=== PATIENT | female | born 1960 | race Caucasian/White ===

== ENCOUNTER 2022-10-09 14:03 | Emergency (ER) | payer OTHER, SELFPAY ==
--- NOTE | ~2022-10-09 | XR_ITS ---
EXAMINATION: XR knee LT min 4V DATE: 10/09/2022 14:31 INDICATION: Twisting injury of the left knee TECHNIQUE: Anteroposterior, 2 oblique and crosstable lateral views of the left knee were obtained COMPARISON: None. FINDINGS: Alignment is normal. No fracture. Joint spaces appear normal on nonweightbearing imaging. Tiny varghese nal osteophyte at the cephalad aspect of the patella. Small to moderate-sized left knee joint effusio n without layering lipohemarthrosis. Soft tissues are unremarkable. IMPRESSION: 1. Small to moderate-sized left knee joint effusion. No acute onset multiple . Reviewed, dictated and finalized at location A. [facility] WE[facility]
[2022-10-09 14:15] VITALS: BP 145/78; PULSE 94; RESP 16; TEMP 36.9; O2SAT 99
--- NOTE | 2022-10-09 15:34 | ED.LOWEXIN ---
HPI - Extremity Injury (Lower) General Chief Complaint: Extremity Injury, Lower Stated Complaint: Pain in left knee traveling down leg after injury Time Seen by Provider: 10/09/22 15:34 Source: patient, RN notes reviewed and old records reviewed Mode of arrival: ambulatory Limitations: no limitations History of Present Illness HPI Narrative: 61 year old female who [facility] with complaints of twisting her left knee when walking on stairs outside 10 days ago. Patient reports that she continues to have discomfort in left knee with pain to lateral aspect of her knee which increases with weight bearing. Patient reports that she has been taking muscle relaxers and has been using ice to her knee at intervals.Patient is on daily meloxicam. MD complaint: knee injury (left) Onset (ago): day(s) (10) Type of Injury: other (twisting) Place: street/outdoors Severity scale (1-10): 10 Associated symptoms: able to partially bear weight Treatments prior to arrival: cold therapy and other (muscle relaxers) Related Data Home Medications Medication Instructions Recorded Confirmed amlodipine 10 mg tablet 10 mg PO DAILY 10/09/22 10/09/22 cyclobenzaprine 10 mg tablet 10 mg PO TID PRN Back Pain 10/09/22 10/09/22 hydrocodone 7.5 mg-acetaminophen 1 tablet PO Q6-8H 10/09/22 10/09/22 325 mg tablet meloxicam 15 mg tablet 15 mg PO DAILY 10/09/22 10/09/22 omeprazole 40 mg capsule,delayed 40 mg PO DAILY 10/09/22 10/09/22 release ropinirole 0.25 mg tablet 0.25 mg PO HS 10/09/22 10/09/22 rosuvastatin 40 mg tablet 40 mg PO DAILY 10/09/22 10/09/22 Allergies Allergy/AdvReac Type Severity Reaction Status Date / Time No Known Allergies Allergy Unknown Verified 12/01/06 16:18 Review of Systems Review of Systems: CONSTITUTIONAL: Denies fever, chills, or sweats. EYES: Denies visual changes, redness, or discharge. ENT: Denies rhinorrhea, congestion, sore throat, or otalgia. CARDIOVASCULAR: Denies chest pain, palpitations, or edema. RESPIRATORY: Denies cough or dyspnea. GASTROINTESTINAL: Denies abdominal pain, nausea, vomiting, or diarrhea. GENITOURINARY: Denies dysuria or hematuria. SKIN: Denies rash or itching. MUSCULOSKELETAL: Denies back pain,positive for pain to her left knee joint pain, or myalgia. NEUROLOGIC: Denies headache, numbness, or weakness. PSYCHIATRIC: Denies anxiety or depression. All systems reviewed & are unremarkable except as noted in HPI and below PMFSH Past Medical History Medical History (Updated 10/12/22 @ 11:41 by Jennifer Astudillo NP) Elevated cholesterol Fibula fracture ORIF left fibular fracture GERD (gastroesophageal reflux disease) Hypertension Restless leg syndrome Surgical History Surgical History (Updated 10/12/22 @ 11:36 by Jennifer Astudillo NP) H/O: hysterectomy History of History of cholecystectomy History of lumbar laminectomy Social History Social History (Updated 10/12/22 @ 11:44 by Jennifer Astudillo NP) Smoking status: Never smoker Alcohol intake: current Alcohol use details: social Substance use type: does not use Living arrangements: with family Gender identity (if verbalized by the patient): Female Comments At time of signature, agree with nursing past medical, surgical, social and family history. There is no relevant family history pertinent to the presenting complaint Exam Narrative: GENERAL: Well-appearing, well-nourished, and in no acute distress. HEAD: Normocephalic, atraumatic. EYES: PERRLA and EOMI. ENT: Nares clear, no rhinorrhea or epistaxis. Mucous membranes moist. NECK: Supple.no lymphadenopathy CHEST: Clear to auscultation. No respiratory distress. HEART: Regular rate and rhythm. No murmur heard. Normal peripheral pulses. ABDOMEN: Soft, nontender, nondistended, normal active bowel sounds. EXTREMITIES: Normal range of motion. No edema.Exception noted to left lateral knee with increased pain with weight bearing. ROM intact but with increased
== END 2022-10-09 15:56 | disposition home or self-care (01) ==
PROVIDERS: Emergency Provider Registered Nurse
DX: M25.462 Effusion, left knee (principal); M25.562 Pain in left knee; K21.9 Gastro-esophageal reflux disease without esophagitis; I10 Essential (primary) hypertension
CPT/HCPCS: 73564; 99213; G0463